=== PATIENT | male | born 1950 | race Caucasian/White ===

== ENCOUNTER 2024-05-30 08:08 | Emergency (ER) | payer BC, MEDICARE ==
[2024-05-30] MEDS ORDERED: TAMSULOSIN 0.4 MG CAP As Ordered ONE (14:30)
[2024-05-30] MEDS ORDERED: FLOM0.4C39 PO (15:49)
[2024-05-30 17:17] LABS: APPEARANCE, URINE CLEAR (CLEAR); BACTERIA, URINE AUTO NEGATIVE (NEGATIVE); BILIRUBIN, URINE AUTO NEGATIVE (NEGATIVE); BLOOD, URINE BLOOD 1+ (NEGATIVE); COLOR, URINE STRAW (YELLOW); GLUCOSE, URINE (UA) AUTO NEGATIVE (NEGATIVE); HEMATOCRIT 43.2 % (42.0-52.0); HEMOGLOBIN 14.8 g/dl (13.5-17.5); KETONE, URINE AUTO NEGATIVE (NEGATIVE); LEUKOCYTE ESTERASE, URINE AUTO NEGATIVE (NEGATIVE); MEAN CORPUSCULAR HGB CONC 34.3 g/dl (32.0-36.5); MEAN CORPUSCULAR VOLUME 90.6 fl (80.0-96.0); NITRITE, URINE AUTO NEGATIVE (NEGATIVE); PLATELET COUNT, AUTOMATED 261 10^3/uL (150-450); PROTEIN, URINE AUTO NEGATIVE (NEGATIVE); RBC, URINE AUTO 0 /HPF (0-3); RED BLOOD COUNT 4.77 10^6/uL (4.30-6.10); SPECIFIC GRAVITY URINE AUTO 1.006 (1.002-1.035); SQUAMOUS EPITHELIAL CELL UR AU 0 /HPF (0-6); UROBILINOGEN, URINE AUTO 0.2 mg/dL (0.0-2.0); WBC, URINE AUTO 1 /HPF (0-3); WHITE BLOOD COUNT 9.6 10^3/uL (4.0-10.0)
[2024-05-30 19:47] LABS: ALBUMIN 3.7 G/DL (3.2-5.2); ALKALINE PHOSPHATASE 42 U/L (46-116); ALT/SGPT 23 U/L (7.0-40); AST/SGOT 13 U/L (<34); BILIRUBIN,TOTAL 0.4 MG/DL (0.3-1.2); BLOOD UREA NITROGEN 17 MG/DL (9-23); CALCIUM LEVEL 9.4 MG/DL (8.3-10.6); CARBON DIOXIDE LEVEL 30 MMOL/L (20-31); CHLORIDE LEVEL 108 MMOL/L (98-107); CREATININE FOR GFR 0.99 MG/DL (0.70-1.30); GLOMERULAR FILTRATION RATE > 60.0 (>42); GLUCOSE, FASTING 120 MG/DL (74-106); POTASSIUM SERUM 5.2 MMOL/L (3.5-5.1); SODIUM LEVEL 141 MMOL/L (136-145); TOTAL PROTEIN 6.5 G/DL (5.7-8.2)
== END 2024-05-30 16:17 | disposition home or self-care (01) ==
LOC: M ED 15:26
DX: N40.1 Benign prostatic hyperplasia with lower urinary tract symptoms (principal); F17.220 Nicotine dependence, chewing tobacco, uncomplicated; K40.21 Bilateral inguinal hernia, without obstruction or gangrene, recurrent; K76.0 Fatty (change of) liver, not elsewhere classified; K76.89 Other specified diseases of liver; K57.30 Diverticulosis of large intestine without perforation or abscess without bleeding; Z79.899 Other long term (current) drug therapy